=== PATIENT | female | born 1995 | race Caucasian/White ===

== ENCOUNTER 2016-09-24 13:04 | Emergency (ER) | payer BC ==
[~2016-09-24 13:04] MED LIST: HYDROCODON-ACE1 EAC7 PO; KEFLEX500 MG PO; LO LOESTRIN FE1 EACH PO; MOTRIN800 MG PO; NAPROSYN250 MG PO; PRENATAL1 EACH PO; PRENATAL1 TAB PO; ZOFRAN4 MG PO
[2016-09-24] MEDS ORDERED: PRENATAL-U CAPS1 CAP PO (13:15)
[2016-09-24] MEDS ORDERED: ZOLOFT50 M1 PO (13:15)
[2016-09-24 13:47] LABS: URINE BILIRUBIN NEGATIVE (NEG); URINE BLOOD SMALL (NEG); URINE GLUCOSE (UA) NEGATIVE (NEG); URINE KETONE NEGATIVE (NEG); URINE LEUKOCYTE ESTERASE POSITIVE (NEG); URINE NITRITE NEGATIVE (NEG); URINE PH 6.5 (5.0-8.0); URINE PROTEIN MODERATE (NEG)
[2016-09-24 13:49] LABS: URINE APPEARANCE CLEAR; URINE COLOR YELLOW
[2016-09-24 13:53] LABS: URINE AMORPHOUS 1+; URINE BACTERIA 1+
[2016-09-24] MEDS ORDERED: TRAMADOL HCL50 M2 PO (14:24)
[2016-09-24] MEDS ORDERED: MACROBID 100 M100 M1 PO (14:24)
== END 2016-09-24 14:48 ==
LOC: EDMED 13:04
PROVIDERS: Physician Assistant
DX: N30.90 Cystitis, unspecified without hematuria (principal); F17.210 Nicotine dependence, cigarettes, uncomplicated; Z87.442 Personal history of urinary calculi; Z88.1 Allergy status to other antibiotic agents; Z88.5 Allergy status to narcotic agent; Z88.8 Allergy status to other drugs, medicaments and biological substances